=== PATIENT | male | born 1970 | race Caucasian/White ===

== ENCOUNTER 2019-06-01 19:49 | Emergency (ER) | payer SELFPAY ==
[2019-06-01] MEDS ORDERED: Diphtheria,Pertussis(Acell),Tetanus Vaccine 0.5 ML Syringe IM ONE (20:03)
--- NOTE | 2019-06-01 20:03 | EDM.PDOC ---
ED HPI GENERAL MEDICAL PROBLEM - General Chief Complaint: Lower Extremity Injury/Pain Stated Complaint: BATTERY FELL ON FOOT Time Seen by Provider: 06/01/19 19:55 - History of Present Illness INITIAL COMMENTS - FREE TEXT/NARRATIVE: HISTORY AND PHYSICAL: History of present illness: Patient is a 48-year-old male presents status post injured his left foot in which he dropped a diesel truck battery on his foot he did sustain a small wound to the dorsal aspect of his foot percents with pain swelling of his foot he denies any other trauma or concern he denies up-to-date tetanus Review of systems: As per history of present illness and below otherwise all systems reviewed and negative. Past medical history: As per history of present illness and as reviewed below otherwise noncontributory. Surgical history: As per history of present illness and as reviewed below otherwise noncontributory. Social history: No reported history of drug or alcohol abuse. Family history: As per history of present illness and as reviewed below otherwise noncontributory. Physical exam: HEENT: Atraumatic, normocephalic, pupils reactive, negative for conjunctival pallor or scleral icterus, mucous membranes moist, throat clear, neck supple, nontender, trachea midline. Lungs: Clear to auscultation, breath sounds equal bilaterally, chest nontender. Heart: S1S2, regular, negative for clicks, rubs, or JVD. Abdomen: Soft, nondistended, nontender. Negative for masses or hepatosplenomegaly. Negative for costovertebral tenderness. Pelvis: Stable nontender. Genitourinary: Deferred. Rectal: Deferred. Extremities: Left foot has moderate swelling and ecchymosis and pain over the dorsal aspect with a small approximately 1-2 mm wound noted on dorsal aspect neurovascular exam CMS is unremarkable. Neuro: Awake, alert, oriented. Cranial nerves II through XII unremarkable. Cerebellum unremarkable. Motor and sensory unremarkable throughout. Exam nonfocal. Diagnostics: X-ray left foot Therapeutics: Tetanus update wound was irrigated dressed with bacitracin and occlusive dressing. Short leg posterior mold crutches Impression: #1 acute left foot injury #2 acute fracture second third and fourth metatarsal Definitive disposition and diagnosis as appropriate pending reevaluation and review of above. left foot Pain Score (Numeric/FACES): 9 - Related Data Allergies Allergy/AdvReac Type Severity Reaction Status Date / Time No Known Allergies Allergy Verified 06/01/19 19:56 Home Meds: Home Meds . [No Known Home Meds] 06/01/19 [History] Review of Systems - Review of Systems Review Of Systems: Comprehensive ROS is negative, except as noted in HPI. ED EXAM, GENERAL - Physical Exam Exam: See Below (See dictation) Course - Vital Signs Last Recorded V/S: Last Vital Signs Temp 36.9 C 06/01/19 20:00 Pulse 90 06/01/19 20:00 Resp 18 06/01/19 20:00 BP 160/89 H 06/01/19 20:00 Pulse Ox 98 06/01/19 20:00 - Orders/Labs/Meds Orders: Active Orders 24 hr Category Date Time Status Vaccines to be Administered [RC] PER UNIT ROUTINE Care 06/01/19 20:03 Active Meds: Medications Discontinued Medications Generic Name Dose Route Start Last Admin Trade Name Freq PRN Reason Stop Dose Admin Diphtheria/Tetanus/Acell Pertussis 0.5 ml 06/01/19 20:03 06/01/19 20:10 Adacel IM 06/01/19 20:04 0.5 ml .ONCE ONE Administration Departure - Departure Time of Disposition: 21:00 Disposition: Home, Self-Care 01 Condition: Good Clinical Impression: Foot fracture - Discharge Information Referrals: PCP,None [Primary Care Provider] - Forms: ED Department Discharge Additional Instructions: The following information is given to patients seen in the emergency department who are being discharged to home. This information is to outline your options for follow-up care. We provide all patients seen in our emergency department with a follow-up referral. The need for follow-up, as well as the timing and circumstances, are variable depending upon the specifics of your emergency department visit. If you don't have a primary care physician on staff, we will provide you with a referral. We always advise you to contact your personal physician following an emergency department visit to inform them of the circumstance of the visit and for follow-up with them and/or the need for any referrals to a consulting specialist. The emergency department will also refer you to a specialist when appropriate. This referral assures that you have the opportunity for followup care with a specialist. All of these measure are taken in an effort to provide you with optimal care, which includes your followup. Under all circumstances we always encourage you to contact your private physician who remains a resource for coordinating your care. When calling for followup care, please make the office aware that this follow-up is from your recent emergency room visit. If for any reason you are refused follow-up, please contact the [facility] emergency department at and asked to speak to the emergency department charge nurse. [facility] - [facility] Professional Building [address] [place] [address], [address] [place] [address] Follow-up orthopedic surgery above posterior mold crutches as directed hydrocodone as prescribed return as needed as discussed - My Orders Last 24 Hours: My Active Orders 06/01/19 20:03 Vaccines to be Administered [RC] PER UNIT ROUTINE - Assessment/Plan Last 24 Hours: My Active Orders 06/01/19 20:03 Vaccines to be Administered [RC] PER UNIT ROUTINE
--- NOTE | 2019-06-01 20:25 | CR ---
Indication: Dropped a diesel battery on foot Technique: Three views left foot Comparison: None Findings: Bones: There are minimally displaced transverse fractures through the mid diaphysis of the 2nd, 3rd, and 4th metatarsals. This is best seen on the oblique image. Joint spaces: Unremarkable. Soft tissues: Soft tissue swelling on the dorsum of the foot. Impression: Minimally displaced transverse fracture through the mid diaphysis of the 2nd, 3rd, and 4th metatarsals with associated overlying soft tissue swelling. Dictated by Carisa Medina MD @ Jun 01 2019 8:20PM Signed by Dr. Carisa Medina @ Jun 01 2019 8:23PM
== END 2019-06-01 21:59 | disposition home or self-care (01) ==
LOC: MW.ED 19:49
DX: S92.322A Displaced fracture of second metatarsal bone, left foot, initial encounter for closed fracture (principal); S92.332A Displaced fracture of third metatarsal bone, left foot, initial encounter for closed fracture; S92.342A Displaced fracture of fourth metatarsal bone, left foot, initial encounter for closed fracture; W20.8XXA Other cause of strike by thrown, projected or falling object, initial encounter; X36.1XXA Avalanche, landslide, or mudslide, initial encounter
CPT/HCPCS: 73630-26-LT; 73630-LT; 90471; 90715; 99283-25